=== PATIENT | male | born 1940 | race Caucasian/White ===

== ENCOUNTER → 2019-05-17 12:15 | Outpatient (BNVA) | payer MEDICARE, SELFPAY | PROVIDERS: Family Provider Internal Medicine; PCP Internal Medicine; Visit Provider Nurse Practitioner Family | DX: I10 Essential (primary) hypertension (principal); B37.2 Candidiasis of skin and nail; E53.8 Deficiency of other specified B group vitamins; E55.9 Vitamin D deficiency, unspecified; E78.5 Hyperlipidemia, unspecified; Z79.899 Other long term (current) drug therapy; K21.0 Gastro-esophageal reflux disease with esophagitis; Z86.2 Personal history of diseases of the blood and blood-forming organs and certain disorders involving the immune mechanism | CPT/HCPCS: 36415; 80053; 80061; 81001; 82306; 82607; 83036; 85025 ==

== ENCOUNTER → 2019-09-19 11:47 | Outpatient (BNVA) | payer MEDICARE, SELFPAY | PROVIDERS: Family Provider Internal Medicine; PCP Internal Medicine; Visit Provider Nurse Practitioner Family | DX: Z79.899 Other long term (current) drug therapy (principal); I10 Essential (primary) hypertension; R35.1 Nocturia; J43.9 Emphysema, unspecified; E55.9 Vitamin D deficiency, unspecified; Z86.2 Personal history of diseases of the blood and blood-forming organs and certain disorders involving the immune mechanism; Z12.5 Encounter for screening for malignant neoplasm of prostate | CPT/HCPCS: 80053; 81001; 83036; 83735; 84443; 85025; G0103 ==

== ENCOUNTER → 2019-10-31 13:20 | Outpatient (BNVA) | payer MEDICARE, SELFPAY | PROVIDERS: Family Provider Internal Medicine; PCP Internal Medicine; Referring Provider Nurse Practitioner Family; Visit Provider Internal Medicine Cardiovascular Disease | DX: R06.02 Shortness of breath (principal); I50.9 Heart failure, unspecified; I10 Essential (primary) hypertension; E78.5 Hyperlipidemia, unspecified; G47.10 Hypersomnia, unspecified | CPT/HCPCS: 80048; 83735; 83880 ==

== ENCOUNTER 2019-11-17 08:58 | Outpatient (CLI) | payer MEDICARE, SELFPAY ==
--- NOTE | 2019-11-17 09:30 | USCV_ITS ---
Jody Wheeler Age: 79 Gender: M : 1940 Exam Date: 11/17/2019 09:30 Ordering Phys: Carole Lagunas MD Technologist: Sherry Reyes Exam Location: [facility] [place] Indication: SOB BP: 178 / 62 HR: 64 Rhythm: Sinus Technical Quality: Limited MEASUREMENTS (Male / Female) Normal Values 2D ECHO LV Diastolic Diameter PLAX 3.2 cm 4.2 - 5.9 / 3.9 - 5.3 cm LV Systolic Diameter PLAX 2.6 cm LV Chamber Size 2.4 cm IVS Diastolic Thickness 1.8 cm 0.6 - 1.0 / 0.6 - 0.9 cm IVS Systolic Thickness 1.8 cm LVPW Diastolic Thickness 2.3 cm 0.6 - 1.0 / 0.6 - 0.9 cm LVPW Systolic Thickness 2.1 cm RV Chamber Size 2.6 cm LVOT Diameter 2.0 cm LV Ejection Fraction 2D Teich 41.7 % LV Ejection Fraction MOD 2C 56.2 % LV Ejection Fraction 2C AL 58.4 % LA Diameter 4.2 cm LA Width 3.7 cm LA Height 3.9 cm RA Width 4.2 cm RA Height 4.1 cm Aorta at Sinotubular Diameter 3.5 cm M-MODE LV Diastolic Diameter MM 5.1 cm 4.2 - 5.9 / 3.9 - 5.3 cm LV Systolic Diameter MM 3.2 cm LV Ejection Fraction MM Teich 65.3 % IVS Diastolic Thickness MM 1.4 cm 0.6 - 1.0 / 0.6 - 0.9 cm IVS Systolic Thickness MM 1.8 cm LVPW Diastolic Thickness MM 0.9 cm 0.6 - 1.0 / 0.6 - 0.9 cm LVPW Systolic Thickness MM 1.4 cm Aortic Annulus Diameter 3.5 cm LA Ao Ratio MM 1.2 MV E Point Septal Separation 0.8 cm DOPPLER AV Peak Velocity 140.0 cm/s LVOT Peak Velocity 123.0 cm/s AV Area Cont Eq vti 3.2 cm squared AV Area Cont Eq pk 2.9 cm squared MV Area PHT 3.4 cm squared Mitral E to A Ratio 0.8 MV E' Velocity 9.0 cm/s Mitral E to MV E' Ratio 7.4 Mitral E to LV E' Lateral Ratio 8.2 Mitral E to LV E' Septal Ratio 6.9 TR Peak Velocity 228.0 cm/s TR Peak Gradient 20.7 mmHg TV Peak E Velocity 58.0 cm/s Right Atrial Pressure 3.0 mmHg Pulmonary Artery Systolic Pressu 23.8 mmHg PV Peak Velocity 79.0 cm/s RV Acceleration Time 0.1 s RV Ejection Time 0.4 s RV AcT/ET 0.3 FINDINGS Left Ventricle Normal left ventricular size and systolic function with no regional wall motion abnormalities. LVEF is 55 to 60%.Grade 1 diastolic dysfunction is noted. Right Ventricle The right ventricle is normal in size and function. Right Atrium The right atrium is normal in size. Left Atrium The left atrium is normal in size. Mitral Valve Structurally normal mitral valve without significant stenosis or prolapse. There is no mitral regurgitation. Aortic Valve Structurally normal aortic valve without significant sclerosis or stenosis. There is no aortic regurgitation. Tricuspid Valve Structurally normal tricuspid valve without significant stenosis or regurgitation. Insufficient TR jet to calculate RVSP. Pulmonic Valve Structurally normal pulmonic valve without significant stenosis. There is no pulmonic regurgitation. Pericardium Normal pericardium without effusion. Aorta Normal ascending aorta dimension. CONCLUSIONS This is technically limited study. LVEF is normal at 55 to 60%. Grade 1 diastolic dysfunction is noted. Gilles Lee MD (Electronically Signed) Final Date: 17 November 2019 17:49 S
== END 2019-11-17 08:59 | disposition home or self-care (01) ==
LOC: US 09:01
PROVIDERS: PCP Nurse Practitioner Family; Visit Provider Internal Medicine Critical Care Medicine
DX: R06.02 Shortness of breath (principal); I50.9 Heart failure, unspecified; J43.9 Emphysema, unspecified
CPT/HCPCS: 93306

== ENCOUNTER 2019-11-17 11:00 | Outpatient (CLI) | payer MEDICARE, SELFPAY | END 2019-11-17 11:01 | disposition home or self-care (01) | LOC: SLEEP 11-22 14:31 | PROVIDERS: PCP Nurse Practitioner Family; Visit Provider Internal Medicine Critical Care Medicine | DX: G47.10 Hypersomnia, unspecified (principal) | CPT/HCPCS: 94762 ==

== ENCOUNTER → 2019-11-25 11:55 | Outpatient (BNVA) | payer MEDICARE, SELFPAY | PROVIDERS: PCP Nurse Practitioner Family; Visit Provider Internal Medicine Critical Care Medicine | DX: Z11.59 Encounter for screening for other viral diseases (principal) | CPT/HCPCS: 87635 ==

== ENCOUNTER 2019-12-01 12:35 | Outpatient (CLI) | payer MEDICARE, SELFPAY ==
[2019-12-01 13:36] VITALS: O2SAT 93
--- NOTE | 2019-12-01 13:47 | PFTS_ITS ---
Date of Study:12/01/19 Date of Dictation: MECHANICS: Forced vital capacity (FVC) is normal. Forced expiratory volume in one second (FEV1) is reduced. FEV1/FVC is reduced. FLOW VOLUME LOOP: Reduced flow at all lung volumes with significant scooping. LUNG VOLUMES: Total lung capacity (TLC) is normal. Residual volume (RV) is elevated. DIFFUSING CAPACITY FOR CARBON MONOXIDE: Mild reduced. INTERPRETATION: The pulmonary function tests are consistent with moderate obstruction. This is on prebronchodilator spirometry. No postbronchodilator spirometry was performed as the patient used his inhalers. His lung volumes are consistent with air trapping. Gas exchange (DLCO) is mildly reduced. MTDD
== END 2019-12-01 12:36 | disposition home or self-care (01) ==
LOC: RT 12:39
PROVIDERS: PCP Nurse Practitioner Family; Visit Provider Internal Medicine Critical Care Medicine
DX: J43.9 Emphysema, unspecified (principal); I10 Essential (primary) hypertension; Z86.2 Personal history of diseases of the blood and blood-forming organs and certain disorders involving the immune mechanism; Z11.59 Encounter for screening for other viral diseases; G47.10 Hypersomnia, unspecified
CPT/HCPCS: 80053; 83540; 83735; 94010; 94726; 94729

== ENCOUNTER 2019-12-14 07:09 | Outpatient (CLI) | payer MEDICARE, SELFPAY ==
[2019-12-14 07:19] VITALS: BMI 29.9
--- NOTE | 2019-12-14 07:20 | ECG_ITS ---
[facility] Test Date: 2019-12-14 Pat Name: Jody Wheeler Department: Room: Gender: Male [employer]: : 1940 Requested By: Brandy Stringer Order Number: [id number] De Anda MD: Brandy Stringer M.D. Interpretive Statements NAME OF STUDY: EXERCISE SESTAMIBI STRESS TEST INDICATION: Dyspnea Baseline blood pressure of 150/71 mm Hg, heart rate 72 beats per minute and oxygen saturation of 92%. EKG showed normal sinus rhythm, normal axis with isolated PVCs. Nonspecific T wave abnormality in lead V5, V6 and lead III and aVF. The patient exercised for 5 minutes 1 second on a standard Varun protocol. Patient attained a maximum heart rate of 133 beats per minute(93 % of the maximum predicted heart rate) with a blood pressure at the peak exercise of 246/87 mm Hg. The EKG at the peak exercise revealed sinus tachycardia with 1 to 2 mm horizontal to downsloping ST depression in inferolateral leads. Patient did not have any chest pain or any significant arrhythmis with the exercise During the recovery phase, there were no new changes. Isolated frequent PVCs noted in recovery. ST depression persist late in recovery Blood pressure at the end of the recovery phase was 150/90 mm Hg with a heart rate of 95 beats per minute and oxygen saturation 92%. Isolated PVCs noted in recovery. CONCLUSION: 1. Ischemic EKG response to treadmill exercise. 2. No exercise-induced chest pain or cardiac arrhythmia 3. Fair exercise tolerance, attained a maximum of 7 METs. 4. Baseline hypertension with hypertensive response to exercise. 5. Perfusion scan will be documented separately. Electronically Signed On 12-20-2019 18:19:50 CDT by Brandy Stringer M.D. [id number]
--- NOTE | 2019-12-14 07:25 | NMCV_ITS ---
NM denice perf SPECT r/s* [id number] Liam Jody Age: 79 Gender: M : 1940 Exam Date: 12/14/2019 08:24 Ordering Phys: Brandy Stringer MD ([email or web address]) Technologist: RIVERA Mallory Exam Location: [facility] Indications: SOB STRESS TEST [facility] IMAGE PROTOCOL Rest/Stress 1 Exercise Day Radiopharmaceutical Dose (mCi) Administration Site Administered by Rest: Tc-99m 10.6 IV RIVERA Cochran Sestamibi Stress:Tc-99m 32.1 IV RIVERA Mallory Sestamiprabha Rest: 14-Dec-2019 60 Discovery 630 Stress: 14-Dec-2019 45 Discovery 630 Radiopharmaceutical was injected at 86 % maximum heart rate. Images obtained in supine and prone position. SPECT RESULTS Technical Quality: Good Raw Data Analysis: Normal Image Corrections: No attenuation or motion correction applied Summed Stress Score: 5 Summed Rest Score: 4 Summed Difference Score: 3 PERFUSION FINDINGS Small size perfusion abnormality of mild severity of basal to mid inferior wall on rest images with mild reversibility in basal to mid inferolateral wall on supine stress images with improved tracer uptake on prone stress images. This is likely suggestive of attenuation artifact. FUNCTIONAL RESULTS (calculated via Gated SPECT) Stress Image LV EF (%): 63 Stress EDV (mL):68 TID: 0.91 Stress ESV (mL):25 FUNCTIONAL FINDINGS: The left ventricle is normal in size. Transient Ischemia Dilatation of 0.91. There is normal left ventricular systolic function. The left ventricular ejection fraction is normal with a value of 63%. There is normal left ventricular wall thickening. Normal end-diastolic end-systolic volumes. IMPRESSIONS 1. Small sized perfusion abnormality of mild severity of basal to mid inferior wall with mild reversibility in basal to mid inferolateral purdy with improved tracer uptake on prone stress images. 2. This is likely suggestive of attenuation artifact. 3. Overall left ventricular systolic function is normal without regional wall motion abnormalities. 4. The left ventricular ejection fraction is normal with a value of 63%. 5. No significant coronary ischemia based on the study. Brandy Stringer MD (Electronically Signed) Final Date: 16 December 2019 15:00 S
[2019-12-14 10:22] VITALS: BP 146/70; PULSE 96
== END 2019-12-14 07:10 | disposition home or self-care (01) ==
LOC: CDL 07:09
PROVIDERS: PCP Nurse Practitioner Family; Visit Provider Internal Medicine Cardiovascular Disease
DX: R06.02 Shortness of breath (principal); R06.00 Dyspnea, unspecified; I10 Essential (primary) hypertension
CPT/HCPCS: 78452; 93017; A9500

== ENCOUNTER 2019-12-14 12:00 | Outpatient (CLI) | payer MEDICARE, SELFPAY | END 2019-12-14 12:01 | disposition home or self-care (01) | PROVIDERS: PCP Nurse Practitioner Family; Visit Provider Internal Medicine Critical Care Medicine | DX: G47.10 Hypersomnia, unspecified (principal) | CPT/HCPCS: G0399 ==

== ENCOUNTER → 2020-01-19 10:02 | Outpatient (BNVA) | payer MEDICARE, SELFPAY | PROVIDERS: PCP Nurse Practitioner Family; Visit Provider Nurse Practitioner Family | DX: D64.9 Anemia, unspecified (principal); Z79.899 Other long term (current) drug therapy | CPT/HCPCS: 80053; 83036; 83550; 85025 ==

== ENCOUNTER → 2020-11-15 11:27 | Outpatient (BNVA) | payer MEDICARE, SELFPAY | PROVIDERS: PCP Nurse Practitioner Family; Visit Provider Nurse Practitioner Family | DX: I10 Essential (primary) hypertension (principal); D64.9 Anemia, unspecified; Z12.5 Encounter for screening for malignant neoplasm of prostate; Z79.899 Other long term (current) drug therapy; E55.9 Vitamin D deficiency, unspecified; E78.2 Mixed hyperlipidemia | CPT/HCPCS: 80053; 80061; 81003; 82306; 83036; 83550; 83735; 84443; 85025; G0103 ==

== ENCOUNTER → 2021-03-18 09:53 | Outpatient (BNVA) | payer MEDICARE, SELFPAY | PROVIDERS: PCP Nurse Practitioner Family; Visit Provider Nurse Practitioner Family | DX: I10 Essential (primary) hypertension (principal); I50.9 Heart failure, unspecified | CPT/HCPCS: 80048; 83735; 83880 ==

== ENCOUNTER → 2021-07-04 12:17 | Outpatient (BNVA) | payer MEDICARE, SELFPAY | PROVIDERS: PCP Nurse Practitioner Family; Visit Provider Internal Medicine Critical Care Medicine | DX: G47.33 Obstructive sleep apnea (adult) (pediatric) (principal); I50.30 Unspecified diastolic (congestive) heart failure; J44.9 Chronic obstructive pulmonary disease, unspecified; E78.2 Mixed hyperlipidemia; G93.2 Benign intracranial hypertension; Z87.891 Personal history of nicotine dependence | CPT/HCPCS: 99214 ==

== ENCOUNTER → 2021-07-26 09:01 | Outpatient (BNVA) | payer MEDICARE, SELFPAY | PROVIDERS: PCP Family Medicine; Visit Provider Nurse Practitioner | DX: Z12.5 Encounter for screening for malignant neoplasm of prostate (principal); Z79.899 Other long term (current) drug therapy; E78.2 Mixed hyperlipidemia; E55.9 Vitamin D deficiency, unspecified; I10 Essential (primary) hypertension | CPT/HCPCS: 80053; 80061; 81003; 82306; 83036; 84443; 85025; G0103 ==

== ENCOUNTER → 2021-08-29 11:07 | Outpatient (BNVA) | payer MEDICARE, SELFPAY | PROVIDERS: PCP Family Medicine; Visit Provider Internal Medicine Cardiovascular Disease | DX: I11.0 Hypertensive heart disease with heart failure (principal); I50.9 Heart failure, unspecified; E78.5 Hyperlipidemia, unspecified; G47.33 Obstructive sleep apnea (adult) (pediatric); J44.9 Chronic obstructive pulmonary disease, unspecified; Z87.891 Personal history of nicotine dependence | CPT/HCPCS: 99214 ==